=== PATIENT | female | born 1975 | race Hispanic/Latino ===

== ENCOUNTER 2018-03-28 18:53 | Emergency (ER) | payer OTHER ==
[~2018-03-28] VITALS: Ht 157.5 cm; Wt 65.3 kg
--- OUTSIDE RECORDS SUMMARY | 2018-03-28 18:55 | XMS REPORT | Clinical Summary ---
Author Author [facility] Address Unknown Phone Unavailable Care Team Providers Care Scenic Artist Name Role Phone Sharpless PCP Allergies Comments Active Allergy Reactions Severity Noted Date Palpitations Promethazine 09/08/2014 Medications End Date Status Medication Sig Dispensed Refills Start Date Active cycloSPORINE modified Take 25 mg by 0 (NEORAL) 25 MG capsule mouth 2 (two) times daily. Active mycophenolate (MYFORTIC) Take 540 mg 0 180 MG EC tablet by mouth 2 (two) times daily. Active metoprolol (TOPROL-XL) Take 100 mg 0 100 MG 24 hr tablet by mouth 2 (two) times daily. Active sodium bicarbonate 325 MG Take 325 mg 0 tablet by mouth 2 (two) times daily 3tablets per time she is taking. Patient doesn't sure about the dose . Active NIFEdipine (ADALAT CC) 60 Take 60 mg by 0 MG 24 hr tablet mouth daily Patient not sure about the dosage . Active Problems Problem Noted Date Pyelonephritis 09/08/2014 Social History Date Tobacco Use Types Packs/Day Years Used Never Smoker Alcohol Use Drinks/Week oz/Week Comments Yes socially Sex Assigned at Date Recorded Not on file Industry Job Start Date Occupation Not on file Not on file Not on file Travel End Travel History Travel Start No recent travel history available. Last Filed Vital Signs Not on file Plan of Treatment Not on file Results Not on fileafter 03/27/2017 Insurance Payer Benefit Subscriber ID Type Phone Address Plan / Group MEDICAID - MEDICAID [facility] xxxxxxxxx Medicaid CARE COMM STAR Contracted PLAN Advance Directives For more information, please contact: [facility] [address] [place] [address] Date Inactivated Comments Code Status Date Activated 09/11/2014 12:56 PM Full Code 09/08/2014 8:50 PM This code status was determined by: Patient
--- OUTSIDE RECORDS SUMMARY | 2018-03-28 18:55 | XMS REPORT ---
Author Author [facility] Address Unknown Phone Unavailable Care Team Providers Care Digital Commentator Name Role Phone ZEESHAN NICHOLS Unavailable Unavailable Problems This patient has no known problems. Allergies, Adverse Reactions, Alerts This patient has no known allergies or adverse reactions. Medications This patient has no known medications. Results Test Description Test Time Test Comments Text Results Atomic Results Result Comments URINALYSIS W/ MICROSCOPIC 2016-10-08 03:43:00 COLOR (BEAKER) (test rahl=687) Light Yellow CLARITY (BEAKER) (test vhng=803) Clear SPECIFIC GRAVITY UA (BEAKER) (test bwsl=263) 1.007 1.001-1.035 PH UA (BEAKER) (test cvwh=687) 5.5 5.0-8.0 PROTEIN UA (BEAKER) (test nxtv=013) 30 mg/dL Negative GLUCOSE UA (BEAKER) (test tanj=557) Negative Negative KETONES UA (BEAKER) (test oaqr=789) Negative Negative BILIRUBIN UA (BEAKER) (test pdhy=185) Negative Negative BLOOD UA (BEAKER) (test tgyy=243) Trace Negative NITRITE UA (BEAKER) (test hbjj=218) Negative Negative LEUKOCYTE ESTERASE UA (BEAKER) (test oomk=019) Moderate Negative UROBILINOGEN UA (BEAKER) (test payl=941) 0.2 mg/dL 0.2-1.0 RBC UA (BEAKER) (test aqyk=047) 7 /HPF WBC UA (BEAKER) (test qjyn=635) 48 /HPF BACTERIA (BEAKER) (test pksn=041) Rare MUCUS (BEAKER) (test fkeb=3993) Rare SOURCE(BEAKER) (test nzxm=9587) Urine, Clean Catch CREATINE KINASE (CK), TOTAL AND [id number] 22:53:00* Test Item Value Reference Range Comments CREATINE KINASE TOTAL (BEAKER) (test kkti=652) 59 U/L 29-200 CREATINE KINASE-MB (BEAKER) (test rrzz=056) 0.6 ng/mL 0.0-6.6 CREATINE KINASE-MB INDEX (BEAKER) (test avju=431) 1.0 % Effective 03/04/2014: CK-MB Reference Range ChangeNew: 0.0-6.6 Previous: 0.0- 4.9CK-MB Reference Range:<6.7 Normal6.7-10.0 Borderline>10.0 Abnormal TROPONIN [id number] 22:53:00* Test Item Value Reference Range Comments TROPONIN I (BEAKER) (test bzfb=662) < ng/mL 0.00-0.03 Effective 03/04/2014: Reference Range ChangeNew: 0.00-0.03 Previous 0.00-0.15T roponin I (TnI) levels must be interpreted in the context of the presenting symp toms and the clinical findings. Elevated TnI levels indicate myocardial damage, but are not specific for ischemic heart disease. Elevated TnI levels are seen in patients with other cardiac conditions (including myocarditis and congestive he art failure), and slight TnI elevations occur in patients with other conditions, including sepsis, renal failure, acidosis, acute neurological disease, and pers istent tachyarrhythmia.[id number] 22:47:00* Test Item Value Reference Range Comments LIPASE (BEAKER) (test kgzm=425) 32 U/L 8-78 [id number] 22:47:00* Test Item Value Reference Range Comments AMYLASE (BEAKER) (test bmlz=683) 81 U/L 25-125 BASIC METABOLIC [id number] 22:47:00* Test Item Value Reference Range Comments SODIUM (BEAKER) (test enjz=355) 136 meq/L 136-145 POTASSIUM (BEAKER) (test oers=680) 4.9 meq/L 3.5-5.1 CHLORIDE (BEAKER) (test mlfi=162) 110 meq/L 98-107 CO2 (BEAKER) (test zmjo=039) 20 meq/L 22-29 BLOOD UREA NITROGEN (BEAKER) (test lgzb=373) 31 mg/dL 7-21 CREATININE (BEAKER) (test jakf=126) 1.10 mg/dL 0.57-1.25 GLUCOSE RANDOM (BEAKER) (test ntcp=252) 87 mg/dL 70-105 CALCIUM (BEAKER) (test gadz=211) 9.2 mg/dL 8.4-10.2 EGFR (BEAKER) (test wygx=6472) 54 mL/min/1.73 sq m ESTIMATED GFR IS NOT ACCURATE CREATININE CLEARANCE IN PREDICTING GLOMERULAR FILTRATION RATE. ESTIMATED GFR IS NOT APPLICABLE FOR DIALYSIS PATIENTS. HEPATIC FUNCTION [id number] 22:47:00* Test Item Value Reference Range Comments TOTAL PROTEIN (BEAKER) (test rzlz=936) 7.4 gm/dL 6.0-8.3 ALBUMIN (BEAKER) (test exeo=7618) 3.9 g/dL 3.5-5.0 BILIRUBIN TOTAL (BEAKER) (test neih=787) 0.3 mg/dL 0.2-1.2 BILIRUBIN DIRECT (BEAKER) (test ysda=804) 0.1 mg/dL 0.1-0.5 ALKALINE PHOSPHATASE (BEAKER) (test hump=381) 65 U/L 40-150 AST (SGOT) (BEAKER) (test kfol=480) 14 U/L 5-34 ALT (SGPT) (BEAKER) (test xbeo=625) 7 U/L 6-55 CBC W/PLT COUNT & AUTO [id number] 22:30:00* Test Item Value Reference Range Comments WHITE BLOOD CELL COUNT (BEAKER) (test cvol=742) 5.8 K/ L 4.0-10.0 RED BLOOD CELL COUNT (BEAKER) (test sddn=604) 3.55 M/ L 4.00-5.00 HEMOGLOBIN (BEAKER) (test ltxa=746) 11.2 GM/DL 12.0-15.0 HEMATOCRIT (BEAKER) (test wxjt=655) 34.2 % 36.0-45.0 MEAN CORPUSCULAR VOLUME (BEAKER) (test tvtr=731) 96.2 fL 82.0-99.0 MEAN CORPUSCULAR HEMOGLOBIN (BEAKER) (test sjgz=086) 31.4 pg 27.0-33.0 MEAN CORPUSCULAR HEMOGLOBIN CONC (BEAKER) (test ubtv=870) 32.6 GM/DL 32.0-36.0 RED CELL DISTRIBUTION WIDTH (BEAKER) (test meiq=763) 13.4 % 10.3-14.2 PLATELET COUNT (BEAKER) (test eftv=596) 213 K/CU MM 150-430 MEAN PLATELET VOLUME (BEAKER) (test gfwe=584) 9.3 fL 6.5-10.5 NUCLEATED RED BLOOD CELLS (BEAKER) (test hrtv=738) 0 /100 WBC 0-0 NEUTROPHILS RELATIVE PERCENT (BEAKER) (test xaku=541) 64 % LYMPHOCYTES RELATIVE PERCENT (BEAKER) (test cjiu=487) 23 % MONOCYTES RELATIVE PERCENT (BEAKER) (test oqfc=425) 10 % EOSINOPHILS RELATIVE PERCENT (BEAKER) (test dban=231) 2 % BASOPHILS RELATIVE PERCENT (BEAKER) (test qzzq=071) 1 % NEUTROPHILS ABSOLUTE COUNT (BEAKER) (test dpct=542) 3.71 K/ L 1.80-8.00 LYMPHOCYTES ABSOLUTE COUNT (BEAKER) (test lccw=041) 1.34 K/ L 1.48-4.50 MONOCYTES ABSOLUTE COUNT (BEAKER) (test kezb=471) 0.59 K/ L 0.00-1.30 EOSINOPHILS ABSOLUTE COUNT (BEAKER) (test gths=967) 0.11 K/ L 0.00-0.50 BASOPHILS ABSOLUTE COUNT (BEAKER) (test vqzj=519) 0.04 K/ L 0.00-0.20 0.00
[2018-03-28 21:35] VITALS: BP 163/91
== END 2018-03-28 21:42 | disposition home or self-care (01) ==
LOC: ER 18:53
DX: I10 Essential (primary) hypertension (principal); N18.9 Chronic kidney disease, unspecified; Z94.0 Kidney transplant status
CPT/HCPCS: 93005; 99283